=== PATIENT | female | born 2005 | race Caucasian/White ===

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

== ENCOUNTER 2023-01-21 05:57 | Emergency (ER) | payer BC, MEDICAID ==
[~2023-01-21] VITALS: Ht 162.5 cm; Wt 80.0 kg
[~2023-01-21 05:57] MED LIST changes: -BISM262T13 PO; -MECL-149 PO; +MECL-291 PO; +[UNRECOGNIZED DRUG - CODE] PO
--- NOTE | 2023-01-21 06:27 | ED Cough/URI ---
General Chief Complaint: Cough/Cold/Flu Symptoms Stated Complaint: FEVER 99.2,VOMITING,DIZZY,BODYACHE Source: patient Exam Limitations: no limitations (VALERI KONG) History of Present Illness Date Seen by Provider: Jan 21, 2023 Initial Comments 17 YO female presents to ED c/o sore throat and body aches onset x 1 day. Pt reports yesterday she developed a sore throat prompting her visit at [facility] where she tested negative for COVID, influenza A/B, and strep. She was advised to start OTC medications. She has taken benadryl, ibuprofen, and throat spray with minimal relief. Pt states this morning she has worsening body aches, low grade fever of 99.5, intermittent cough, mild congestion, and dizziness. She vomited x 1 this morning. Denies abdominal pain, diarrhea, headache, numbness, chest pain, shortness of breath, chest pain, urinary sx, or any other sx. She started her menstrual cycle on 01/17. Reports her boyfriend had similar symptoms x 1 week ago. Timing/Duration: yesterday Severity/Quality: mild Prior Episodes/Possible Cause: no prior episodes Associated Symptoms: cough, dizziness, fever/chills, muscle aches, nasal congestion, sore throat (VALERI KONG) Time Seen by Provider: 06:07 (KERRIE ANDREW DO) Allergies and Home Medications Allergies Coded Allergies: bee venom protein (honey bee) (Verified Allergy, Mild, 04/07/18) SWELLING Patient Home Medication List Home Medication List Reviewed: Yes (VALERI KONG) Home Medication List Reviewed: Yes (KERRIE ANDREW DO) Cefdinir (Cefdinir) 300 Mg Capsule, 300 MG PO BID, (Reported) Entered as Reported by: LOGAN MARQUEZ on 06/11/18 1347 Cyproheptadine HCl (Cyproheptadine HCl) 4 Mg Tablet, 1 TAB PO HS Prescribed by: LOGAN MARQUEZ on 06/12/18 1832 Ondansetron (Ondansetron Odt) 4 Mg Tab.rapdis, 4 MG PO Q4H PRN for NAUSEA/VOMITING-1ST LINE, (Reported) Entered as Reported by: KIMMY KOTHARI on 06/12/18 0845 Review of Systems Review of Systems Constitutional: No chills, No diaphoresis; dizziness, fever, malaise EENTM: throat pain; No ear discharge, No ear pain, No blurred vision, No hoarseness, No epistaxis, No nose congestion, No nose pain, No throat swelling Respiratory: cough (intermittent); No dyspnea on exertion, No short of breath, No wheezing Cardiovascular: No chest pain, No edema Gastrointestinal: No abdominal pain, No diarrhea, No heartburn, No jaundice, No melena; nausea, vomiting (x 1) Genitourinary: No discharge, No dysuria, No frequency, No incontinence : No LMP: Jan 17, 2023 Musculoskeletal: No muscle weakness Skin: No change in color, No lesions Psychiatric/Neurological: Denies Headache, Denies Numbness, Denies Weakness Hematologic/Lymphatic: No Symptoms Reported (VALERI KONG) All Other Systems Reviewed Negative Unless Noted: Yes (VALERI KONG) Past Artuqzb-Zqnhnp-Fsnobe Hx Immunizations Up To Date Tetanus Booster (TDap): Less than 5yrs PED Vaccines UTD: Yes Influenza Vaccine Up-to-Date: No; Not Current First/Initial COVID19 Vaccinat: x1 COVID19 Vaccine [employer]: [employer] (VALERI KONG) Seasonal Allergies Seasonal Allergies: No (VALERI KONG) Past Medical History Surgery/Hospitalization HX: FREQUENT UTI'S Surgeries: Yes (DENTAL SURGERY) Adenoidectomy, Tonsillectomy Respiratory: No Cardiac: No Neurological: Yes Reproductive Disorders: No Female Reproductive Disorders: Denies Sexually Transmitted Disease: No HIV/AIDS: No Genitourinary: Yes UTI-Chronic Gastrointestinal: Yes (CHRONIC NAUSEA/VOMITING SYNDROME) Chronic Constipation Musculoskeletal: No Endocrine: No HEENT: No Cancer: No Psychosocial: No Integumentary: No Blood Disorders: No Adverse Reaction/Blood Tranf: No (VALERI KONG) Family Medical History Alcoholism 03 FATHER 03 MOTHER History of - disorder 03 MOTHER (GUILLIAN BARRE) History of drug abuse 03 FATHER 03 MOTHER No Family History of: Hereditary disease History of - anemia History of - respiratory disease Myocardial infarction Heart Disease, Seizures Mother had Guillian [place] syndrome after receiving influenza vaccine (VALERI KONG) Physical Exam Vital Signs - First Documented 01/21/23 01/21/23 06:46 07:34 Temp 36.8 Pulse 124 Resp 18 B/P (MAP) 105/72 (83) Pulse Ox 98 O2 Delivery Room Air (LORRIE,KERRIE L DO) Capillary Refill : (VALERI KONG) Height: 5'4.00" Weight: 139lbs. 9.0oz. [id number]; 28.00 BMI Method:Stated General Appearance: WD/WN, mild distress (Pt is in NAD, but appears to be uncomfortable due to symptoms); No obese Eyes: Bilateral Eye Normal Inspection, Bilateral Eye PERRL, Bilateral Eye EOMI HEENT: PERRL/EOMI, TMs normal, pharynx normal; No pharyngeal erythema (No posterior oropharynx erythema or exudates. ), No tonsillar exudate; other Neck: full range of motion, supple, lymphadenopathy (R), lymphadenopathy (L) (mild bilateral lymphadenopathy. Posterior auricular LNs mildly tender, but mobile. ); No tender midline, No thyromegaly Respiratory: chest non-tender, lungs clear, normal breath sounds, no respiratory distress, no accessory muscle use Cardiovascular: no edema, no gallop, no JVD, no murmur; No bradycardia; tachycardia (mildly tachy at 102) Gastrointestinal: normal bowel sounds, non tender, soft, no organomegaly, no pulsatile mass; No abnormal bowel sounds, No distended, No guarding, No rebound, No tenderness, No mass Extremities: non-tender, normal inspection, no pedal edema, no calf tenderness, normal capillary refill Neurologic/Psychiatric: no motor/sensory deficits, alert, normal mood/affect, oriented x 3 Skin: normal color, warm/dry (VALERI KONG) General Appearance: WD/WN, no apparent distress (LORRIEKERRIE L DO) Focused Exam Lactate Level 01/21/23 06:37: Lactic Acid Level 0.63 (LORRIE,KERRIE L DO) Lactic Acid Level Laboratory Tests Test 01/21/23 06:37 Lactic Acid Level 0.63 MMOL/L (0.50-2.00) (LORRIE,KERRIE L DO) Progress/Results/Core Measures Suspected Sepsis Recent Fever Within 48 Hours: Yes Infection Criteria Present: None New/Unexplained Altered Menta: No SIRS Temperature: Pulse: Respiratory Rate: Laboratory Tests 01/21/23 06:37: Blood Pressure / Mean: 01/21/23 06:37: Laboratory Tests 01/21/23 06:37: (VALERI KONG) Results/Orders Lab Results Laboratory Tests Test 01/21/23 06:37 Range/Units White Blood Count 11.7 H 4.3-11.0 10^3/uL Red Blood Count 4.71 3.80-5.11 10^6/uL Hemoglobin 14.4 11.5-16.0 g/dL Hematocrit 42 35-52 % Mean Corpuscular Volume 90 80-99 fL Mean Corpuscular Hemoglobin 31 25-34 pg Mean Corpuscular Hemoglobin Concent 34 32-36 g/dL Red Cell Distribution Width 12.1 10.0-14.5 % Platelet Count 263 130-400 10^3/uL Mean Platelet Volume 10.9 9.0-12.2 fL Immature Granulocyte % (Auto) 0 % Neutrophils (%) (Auto) 76 H 42-75 % Lymphocytes (%) (Auto) 10 L 12-44 % Monocytes (%) (Auto) 12 0-12 % Eosinophils (%) (Auto) 2 0-10 % Basophils (%) (Auto) 0 0-10 % Neutrophils # (Auto) 8.8 H 1.8-7.8 10^3/uL Lymphocytes # (Auto) 1.2 1.0-4.0 10^3/uL Monocytes # (Auto) 1.4 H 0.0-1.0 10^3/uL Eosinophils # (Auto) 0.2 0.0-0.3 10^3/uL Basophils # (Auto) 0.0 0.0-0.1 10^3/uL Immature Granulocyte # (Auto) 0.0 0.0-0.1 10^3/uL Sodium Level 138 135-145 MMOL/L Potassium Level 4.1 3.6-5.0 MMOL/L Chloride Level 109 H 98-107 MMOL/L Carbon Dioxide Level 20 L 21-32 MMOL/L Anion Gap 9 5-14 MMOL/L Blood Urea Nitrogen 8 7-18 MG/DL Creatinine 0.70 0.60-1.30 MG/DL Estimat Glomerular Filtration Rate 128 BUN/Creatinine Ratio 11 Glucose Level 106 H 70-105 MG/DL Lactic Acid Level 0.63 0.50-2.00 MMOL/L Calcium Level 9.1 8.5-10.1 MG/DL Corrected Calcium 8.9 8.5-10.1 MG/DL Total Bilirubin 0.5 0.1-1.0 MG/DL Aspartate Amino Transf (AST/SGOT) 162 H 5-34 U/L Alanine Aminotransferase (ALT/SGPT) 245 H 0-55 U/L Alkaline Phosphatase 77 40-136 U/L Total Protein 7.2 6.4-8.2 GM/DL Albumin 4.3 3.2-4.5 GM/DL (KERRIE ANDREW DO) My Orders Orders - KERRIE ANDREW DO Cbc And Automated Diff (01/21/23 06:20) Comprehensive Metabolic Panel (01/21/23 06:20) Blood Culture (01/21/23 06:20) Chest 1 View, Ap/Pa Only (01/21/23 06:20) Ed Iv/Invasive Line Start (01/21/23 06:20) Vital Signs Adult Sepsis Patie Q15M (01/21/23 06:20) Lactic Acid Analyzer (01/21/23 06:20) Ns Iv 1000 Ml (Ns Iv 1000 Ml) (01/21/23 06:30) Ketorolac Injection (Ketorolac Injection (01/21/23 06:30) (KERRIE ANDREW DO) Medications Given in ED Current Medications Medications Dose Ordered Sig/Thomas Route Start Time Stop Time Status Last Admin Dose Admin Ketorolac Tromethamine 15 mg ONCE ONCE IVP 01/21/23 06:30 01/21/23 06:31 DC 01/21/23 06:40 15 MG (KERRIE ANDREW DO) Vital Signs/I&O 01/21/23 01/21/23 06:46 07:34 Temp 36.8 Pulse 124 85 Resp 18 16 B/P (MAP) 105/72 (83) 100/66 Pulse Ox 98 O2 Delivery Room Air Room Air (KERRIE ANDREW DO) Vital Signs/I&O Capillary Refill : (VALERI KONG) Progress Note : Time: 06:35 Progress Note 17 YO otherwise healthy female presented with sore throat, generalized body aches, and intermittent fever x 1 day. Vitals are stable however she is mildly tachycardic and hypotensive at 105/72 suspicious for possible sepsis. Exam is remarkable for an uncomfortable appearance due to symptoms. Chest clear, heart mildly tachycardic. No posterior oropharynx erythema or exudates. DDx includes sepsis, URI, PNA, COVID vs others. Will obtain CBC, CMP, lactate, and chest XR to evaluate for possible source of infection. She was tested yesterday for COVID, flu A/B, and strep all of which were negative, so will not retest today. Plan to provide IVF and toradol for pain. Pt is agreeable with plan. (VALERI KONG) Departure Communication (Admissions) I have seen and personally evaluated the patient. Patient is hemodynamically stable, nontoxic. She initially has mild tachycardia, improved with IV fluids. Blood pressures range between 10 5-1 10 systolic throughout her emergency department stay. She has a slight leukocytosis. Chest x-ray obtained which is negative for any acute cardiopulmonary abnormalities. I did independently review these images. Remainder of her lab results show mild elevation of her LFTs but no other evidence for endorgan dysfunction or sepsis type findings. She is given a liter of IV fluids, some Toradol here in the emergency department and is discharged in stable condition. She is nontoxic in appearance and she is given close follow-up precautions. She states understanding and is comfortable agreeable current plan of care. (KERRIE ANDREW DO) Impression Primary Impression: Upper respiratory infection Qualified Codes: J06.9 - Acute upper respiratory infection, unspecified Disposition: HOME, SELF-CARE Condition: Stable Departure-Patient Inst. Referrals: EVELYNE HAMPTON APRN (PCP) Primary Care Physician [facility] (Family) Primary Care Physician Patient Instructions: Viral Upper Respiratory Infection, Adult (DC) Add. Discharge Instructions: Increase your fluids at home, rest as needed. Alternate ibuprofen and Tylenol as needed for body aches, fevers. Return to the emergency department for any severe concerns. Follow-up with your primary doctor for any nonemergent needs. All discharge instructions reviewed with patient and/or family. Voiced understanding. VALERI KONG Jan 21, 2023 06:27 KERRIE ANDREW DO Jan 21, 2023 07:09
[2023-01-21] MEDS ORDERED: NS IV 1000 ML 1,000 ML IV SCH (06:30)
[2023-01-21] MEDS ORDERED: KETOROLAC INJ 15 MG/ML VIAL IVP ONE (06:30)
[2023-01-21 06:47] LABS: BASOPHILS % (AUTO) 0 % (0-10); EOSINOPHILS # (AUTO) 0.2 10^3/uL (0.0-0.3); EOSINOPHILS % (AUTO) 2 % (0-10); HEMATOCRIT 42 % (35-52); HEMOGLOBIN 14.4 g/dL (11.5-16.0); LYMPHOCYTES # (AUTO) 1.2 10^3/uL (1.0-4.0); LYMPHOCYTES % (AUTO) 10 % (12-44); MEAN CORPUSCULAR HEMOGLOBIN 31 pg (25-34); MEAN CORPUSCULAR HGB CONC 34 g/dL (32-36); MEAN CORPUSCULAR VOLUME 90 fL (80-99); MEAN PLATELET VOLUME 10.9 fL (9.0-12.2); MONOCYTES # (AUTO) 1.4 10^3/uL (0.0-1.0); MONOCYTES % (AUTO) 12 % (0-12); NEUTROPHILS # (AUTO) 8.8 10^3/uL (1.8-7.8); NEUTROPHILS % (AUTO) 76 % (42-75); PLATELET COUNT 263 10^3/uL (130-400); WHITE BLOOD COUNT 11.7 10^3/uL (4.3-11.0)
[2023-01-21 06:56] LABS: ALBUMIN 4.3 GM/DL (3.2-4.5)
[2023-01-21 06:57] LABS: POTASSIUM 4.1 MMOL/L (3.6-5.0)
[2023-01-21 06:58] LABS: CALCIUM 9.1 MG/DL (8.5-10.1)
[2023-01-21 06:59] LABS: TOTAL PROTEIN 7.2 GM/DL (6.4-8.2)
[2023-01-21 07:01] LABS: BILIRUBIN,TOTAL 0.5 MG/DL (0.1-1.0)
[2023-01-21 07:03] LABS: CREATININE SERUM 0.7 MG/DL (0.60-1.30)
--- NOTE | 2023-01-21 07:21 | Diagnostic Imaging Report ---
PATIENT HISTORY: Dyspnea. TECHNIQUE: Single frontal view of the chest. COMPARISON: 05/04/2016 FINDINGS: The lung volumes are normal. No focal consolidation is seen. No large pleural effusion or pneumothorax is seen. The cardiomediastinal silhouette is normal in size and contour. No acute osseous abnormality is seen. IMPRESSION: No acute pulmonary abnormality seen. Dictated by: Dictated on workstation # [id number]
[2023-01-21 07:34] VITALS: BP 100/66
== END 2023-01-21 07:33 | disposition home or self-care (01) ==
LOC: EDUNIT# 05:57 → ER 06:00
DX: J06.9 Acute upper respiratory infection, unspecified (principal)
CPT/HCPCS: 36415; 71045; 80053; 83605; 85025; 87040